=== PATIENT | male | born 2005 | race Two or more races ===

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

== ENCOUNTER 2025-01-29 08:07 | Emergency (ER) | payer MEDICAID, SELFPAY ==
[2025-01-29 08:08] VITALS: BMI 32.1
[2025-01-29 08:13] VITALS: BP 129/84; PULSE 83; RESP 18; TEMP 36.9; O2SAT 98
--- NOTE | 2025-01-29 08:30 | EDNOTE_ITS ---
ED Epistaxis RME/HPI General Chief complaint: Epistaxis/Nasal Foreign Body Stated complaint: FREQUENT NOSE BLEED FOR 2 WEEKS Source: patient Arrival date/time: 01/29/25 08:07 19-year-old male with no known medical history presents to the emergency room with a chief complaint of frequent nosebleeds x 2 weeks Mode of arrival: ambulatory Limitations: no limitations Related Data Allergies Allergy/AdvReac Type Severity Reaction Status Date / Time No Known Allergies Allergy Verified 01/29/25 08:10 Review of Systems Review of Systems Systems Reviewed: All systems reviewed, normal except as documented Constitutional Constitutional: Reports system reviewed and no additional complaints, except as documented, Denies fatigue, Denies fever(s), Denies headache(s) and Denies weakness Eyes Eyes: Reports system reviewed and no additional complaints, except as documented, Denies blurry vision and Denies change in vision ENT Ears, Nose, Mouth, and Throat: Reports system reviewed and no additional complaints, except as documented, Denies otalgia, Reports epistaxis, Denies headache(s), Denies nasal congestion, Denies throat swelling and Denies vertigo Cardiovascular Cardiovascular: Reports system reviewed and no additional complaints, except as documented, Denies chest pain, Denies dyspnea and Denies dyspnea on exertion Respiratory Respiratory: Reports system reviewed and no additional complaints, except as documented, Denies chest congestion, Denies cough, Denies dyspnea, Denies dyspnea on exertion and Denies wheezing Gastrointestinal Gastrointestinal: Reports system reviewed and no additional complaints, except as documented, Denies abdominal pain, Denies cramping, Denies nausea and Denies vomiting Genitourinary Genitourinary: Reports system reviewed and no additional complaints, except as documented, Denies dysuria and Denies hematuria Musculoskeletal Musculoskeletal: Reports system reviewed and no additional complaints, except as documented and Denies back pain Integumentary/Breasts Skin/Breast: Reports system reviewed and no additional complaints, except as documented and Denies wounds Neurologic Neurologic: Reports system reviewed and no additional complaints, except as documented, Denies confusion, Denies headache(s), Denies lack of coordination, Denies vertigo and Denies weakness Psychiatric Psychiatric: Reports system reviewed and no additional complaints, except as documented, Denies anxiety, Denies confusion, Denies depression, Denies paranoia, Denies suicidal ideation and Denies tactile hallucinations Endocrine Endocrine: Reports system reviewed and no additional complaints, except as documented and Denies fatigue Hematologic/Lymphatic Hematologic/Lymphatic: Reports system reviewed and no additional complaints, except as documented and Denies lymphadenopathy Allergic/Immunologic Allergic/Immunologic: Reports system reviewed and no additional complaints, except as documented, Denies throat swelling, Denies urticaria and Denies wheezing Past Medical History Social History SMOKING STATUS: Current some day smoker ED Exam General Limitations: Present no limitations General appearance: Present alert and in no apparent distress Head Head exam: Present atraumatic Eye Eye exam: Present normal appearance, PERRL and EOMI ENT ENT exam: Present normal exam, normal oropharynx and mucous membranes moist Expanded ENT Exam Nasal speculum exam: Left: epistaxis and Right: normal Mouth exam: Present normal external inspection Teeth exam: Present normal inspection Throat exam: Present normal inspection Neck Neck exam: Present normal inspection, full ROM and trachea midline Chest Chest inspection: Present normal inspection and symmetric chest wall rise Respiratory Respiratory exam: Present normal lung sounds bilaterally Cardiovascular Cardiovascular exam: Present regular rate, normal rhythm and normal heart sounds Abdominal Exam Abdominal exam: Present soft and normal bowel sounds Extremities Exam Extremities exam: Present normal inspection and full ROM Back Exam Back exam: Present normal inspection and full ROM Neurological Exam Neurological exam: Present alert, oriented X3 and CN II-XII intact Psychiatric Psychiatric exam: Present normal affect and normal mood Skin Skin exam: Present warm, dry, intact and normal color Course Quality Measures none Vital Signs Vital signs: Vital Signs Temperature 98.4 F 01/29/25 08:13 Pulse Rate 83 01/29/25 08:13 Respiratory Rate 18 01/29/25 08:13 Blood Pressure 129/84 01/29/25 08:13 Pulse Oximetry (%) 98 01/29/25 08:13 Oxygen Delivery Method Room Air 01/29/25 08:13 Epistaxis MDM Narrative MDM Narrative:: 19-year-old male with no known medical history presents to the emergency room with a chief complaint of frequent nosebleeds x 2 weeks Patient is hemodynamically stable and in no apparent distress. Patient's bleeding is controlled during my evaluation. The patient had an epistaxis episode this morning but states it resolved. Patient states he is here because this has been going on for the last 2 weeks Patient was educated to follow-up with his primary care provider for further management of this nosebleeds My evaluation was within normal limits. I was not able to visualize any apparent cause of the bleeds. Patient denies any trauma picking at the nose or snorting anything. Patient was discharged and educated to follow-up with primary care provider in the next 24 to 48 hours and return to the emergency room for any evidence of w orsening signs or symptoms Patient data External records reviewed:: [facility] previous records Clinical information provided by:: patient Social determinants that could affect healthcare access:: none Patient has the following chronic illnesses:: No chronic illness How is presenting disease/condition affected by chronic disease/condition?: no chronic disease Evaluation data The following diagnostics were reviewed and interpreted by me:: lab results and radiology exam(s) Lab and/or radiology exams considered but not ordered:: Labs and radiology exams considered and ordered Interpretation Summary: N/A Medications / Prescriptions Medications or Prescriptions considered but not ordered:: No medication given Medication administrations:: No medication given Consultations Consultation(s) initiated? (list below): No Diagnosis Epistaxis Differential Diagnosis: anterior epistaxis and posterior epistaxis Most likely diagnosis given after review of the tests above:: Anterior epistaxis Admission Indicated Admission indicated?: not indicated Admission Request Was there a request for admission?: No Disposition Plan Disposition Plan: Discharge Discharge Attestation Discharge Attestation: The patient and all family members were given an opportunity to ask questions and understood the discharge instructions. Discharge instructions specifically effects, indications for sooner follow up or return to the emergency department, and the expected course of current diagnosis. Patient condition: Stable Discharge Plan Plan Patient Disposition: HOME (Self Care) Discharge Disposition comment: Stable Problem List Clinical Impression: Epistaxis Patient/Caregiver Discharge Instructions Education Materials: Nosebleed, ED Epistaxis (Adult) Additional Instructions: Please follow-up with your primary care provider in the next 24 to 48 hours At this time your bleeding is controlled and there were no complications. If your bleeding continues you will need to follow-up with your primary care provider as an ENT referral may be indicated For any evidence of worsening signs or symptoms return to the emergency room immediately Print Language: Thai Stand Alone Forms: [facility] Award Info., Patient Portal Info Letter PA/CAREER BASED INTERVENTION COORDINATOR Supervising Physician PARAMJIT/GLORY Supervising Physician: Dr. Naylor
== END 2025-01-29 09:36 | disposition home or self-care (01) ==
LOC: SERX 08:41
PROVIDERS: Emergency Provider Family Medicine
DX: R04.0 Epistaxis (principal)
CPT/HCPCS: 99281